=== PATIENT | female | born 1950 | race Caucasian/White ===

== ENCOUNTER → 2016-09-03 | Outpatient (CLI) | payer BC, MEDICARE ==
[~2016-09-03] MED LIST: ASPIR-TRIN325 M1 PO; IMODIUM A-D2 M2 PO; NAPROXEN500 MG PO; NORCO 5/3251 TABLET PO; PEPTO BISMOL240 ML PO
== END | disposition home or self-care (01) ==
LOC: CDC 08:29
DX: Z01.810 Encounter for preprocedural cardiovascular examination (principal); I49.9 Cardiac arrhythmia, unspecified; K40.91 Unilateral inguinal hernia, without obstruction or gangrene, recurrent
CPT/HCPCS: 93000

== ENCOUNTER 2016-09-15 06:35 | Day surgery (SDC) | payer BC, OTHER ==
[~2016-09-15] VITALS: Ht 162.6 cm; Wt 82.5 kg
[~2016-09-15 06:35] MED LIST changes: -NORCO 5/3251 TABLET PO
[2016-09-15 07:23] VITALS: BP 139/78
[2016-09-15] MEDS ORDERED: NORCO 5/3251 TABLET PO (10:32)
[2016-09-15 11:30] VITALS: BP 122/69
[2016-09-15 12:07] VITALS: BP 125/70
== END 2016-09-15 12:13 | disposition home or self-care (01) ==
LOC: SDC 06:35
PROC: 0YQ60ZZ Repair Left Inguinal Region, Open Approach (ICD-10-PCS; principal; 2016-09-15)
DX: K40.30 Unilateral inguinal hernia, with obstruction, without gangrene, not specified as recurrent (principal); F17.200 Nicotine dependence, unspecified, uncomplicated; K50.90 Crohn's disease, unspecified, without complications; Z79.82 Long term (current) use of aspirin
CPT/HCPCS: 88302; C1781; J0330; J0690; J1170; J2250; J2405; J3010